=== PATIENT | female | born 1970 | race Caucasian/White ===

== ENCOUNTER → 2017-06-20 10:55 | Outpatient (CLI) | payer OTHER, SELFPAY ==
[2017-06-23 16:13] LABS: Vitamin D 1,25-Dihydroxy 40.4 pg/mL (19.9-79.3)
== END ==
PROVIDERS: Family Provider Preventive Medicine Occupational Medicine; PCP Preventive Medicine Occupational Medicine; Visit Provider Nurse Practitioner Women's Health
DX: R53.83 Other fatigue (principal)
CPT/HCPCS: 36415; 82652

== ENCOUNTER → 2017-06-29 10:49 | Outpatient (CLI) | payer OTHER, SELFPAY ==
--- NOTE | 2017-06-29 10:53 | HPBI_ITS ---
MAMMOGRAPHY - BILATERAL SCREENING REASON FOR EXAM: Female, 46 years old. Routine annual screening examination. PERTINENT HISTORY: Aunt with breast cancer. TECHNIQUE: Digital bilateral breast hilton (3D mammographic acquisition) in the CC and MLO projections. 2-D mediolateral oblique (MLO) and craniocaudad (CC) views of both breasts were obtained. CAD: Full Field Digital Mammography with Computer Added Detection was performed. COMPARISON: Comparison is made with prior examination dated November 30, 2014 and April 28, 2013. FINDINGS: Breast Composition: The breasts are heterogeneously dense, which may obscure small masses. There are no dominant masses or suspicious calcifications. No other significant abnormalities are identified. There has been no significant change since the prior study. HPBI/SCREENING MAMM (CAD), BILAT IMPRESSION: Stable bilateral screening mammogram. Yearly follow-up mammogram recommended. (A) ASSESSMENT CATEGORY: BIRADS Category 1: Negative. A letter regarding these results will be sent to the patient by the facility within 30 days. Approximately 10% of breast cancers are not detected by mammography. A normal mammogram should not delay biopsy of a clinically suspicious abnormality. [id number] Electronically Signed: Gilberto Prasad MD at 13:09 EST Tel [phone], Service support ,
== END ==
PROVIDERS: Family Provider Preventive Medicine Occupational Medicine; PCP Preventive Medicine Occupational Medicine; Visit Provider Obstetrics & Gynecology Gynecology
DX: Z12.31 Encounter for screening mammogram for malignant neoplasm of breast (principal); Z80.3 Family history of malignant neoplasm of breast
CPT/HCPCS: 77063; 77067

== ENCOUNTER → 2017-09-28 15:38 | Outpatient (CLI) | payer OTHER, SELFPAY | PROVIDERS: Family Provider Preventive Medicine Occupational Medicine; PCP Preventive Medicine Occupational Medicine; Visit Provider Otolaryngology Otolaryngology/Facial Plastic Surgery | DX: J32.9 Chronic sinusitis, unspecified (principal) | CPT/HCPCS: 87070; 87077; 87186; 87205 ==

== ENCOUNTER 2017-10-10 16:20 | Emergency (ER) | payer OTHER, SELFPAY ==
--- NOTE | 2017-10-10 16:20 | DT_ITS ---
This patient was seen during an EMR downtime October 08, 2017 - October 15, 2017. This patient may have a combination of paper and electronic documentation or all paper documentation. All documentation is viewable within the e-chart portion of [employer] for each patient visit.
== END 2017-10-10 17:30 | disposition home or self-care (01) ==
LOC: ED 10-12 11:19
PROVIDERS: Emergency Provider Emergency Medicine; Family Provider Preventive Medicine Occupational Medicine; PCP Preventive Medicine Occupational Medicine
DX: L27.1 Localized skin eruption due to drugs and medicaments taken internally (principal); R11.0 Nausea; R50.9 Fever, unspecified; T37.0X5A Adverse effect of sulfonamides, initial encounter; Y92.9 Unspecified place or not applicable
CPT/HCPCS: 99283

== ENCOUNTER → 2018-11-04 12:49 | Outpatient (CLI) | payer OTHER, SELFPAY ==
--- NOTE | 2018-11-04 12:52 | BI_ITS ---
MAMMOGRAPHY - BILATERAL SCREENING REASON FOR EXAM: Female, 48 years old. Routine annual screening examination. PERTINENT HISTORY: Aunts with breast cancer. TECHNIQUE: Digital bilateral breast janny (3D mammographic acquisition) in the CC and MLO projections. 2-D mediolateral oblique (MLO) and craniocaudad (CC) views of both breasts were obtained. CAD: Full Field Digital Mammography with Computer Added Detection was performed. COMPARISON: Comparison is made with prior study dated June 29, 2017 and November 30, 2014. FINDINGS: Breast Composition: The breasts are heterogeneously dense, which may obscure small masses. There are no dominant masses or suspicious calcifications. No other significant abnormalities are identified. There has been no significant change since the prior study. BI/SCREEN MAMM (CAD) W/JANNY BILAT IMPRESSION: Stable bilateral screening mammogram. Yearly follow-up mammogram recommended. (A) ASSESSMENT CATEGORY: BIRADS Category 1: Negative. A letter regarding these results will be sent to the patient by the facility within 30 days. Approximately 10% of breast cancers are not detected by mammography. A normal mammogram should not delay biopsy of a clinically suspicious abnormality. [id number] Electronically Signed: Gilberto Prasad, at 15:22 EDT , Service support ,
== END ==
PROVIDERS: Family Provider Preventive Medicine Occupational Medicine; PCP Preventive Medicine Occupational Medicine; Referring Provider Obstetrics & Gynecology Gynecology; Visit Provider Obstetrics & Gynecology Gynecology
DX: Z12.31 Encounter for screening mammogram for malignant neoplasm of breast (principal)
CPT/HCPCS: 77063; 77067

== ENCOUNTER 2020-01-25 13:36 | Emergency (ER) | payer OTHER, SELFPAY ==
[2020-01-25 13:38] VITALS: BP 138/93; PULSE 86; RESP 14; TEMP 36.8; O2SAT 98; BMI 23.6
--- NOTE | 2020-01-25 13:50 | EKG12_ITS ---
Test Reason : DIZZINESS Blood Pressure : / mmHG Vent. Rate : 072 BPM Atrial Rate : 072 BPM P-R Int : 164 ms QRS Dur : 090 ms QT Int : 406 ms P-R-T Axes : 051 011 053 degrees QTc Int : 444 ms Normal sinus rhythm Normal ECG Confirmed by DEBORAH DANIEL, URSZULA ([id number]), commercial production editor NITESH BRANDON ([id number]) on 01/27/2020 1:25:06 PM Referred By: [facility] Confirmed By:URSZULA CABRERA MD
--- NOTE | 2020-01-25 13:55 | ED.VIS.GEN ---
History of Present Illness <Carrington Kevin - Last Filed: 01/25/20 14:38> Informant: Patient Narrative: 49-year-old female with no significant past medical history presents with complaints of dizziness. She states this morning whenever she is up and walking after 1 to 2 minutes she will feel lightheaded like she might pass out. Denies vision changes, room spinning, nausea, or vomiting. It improves if she lies down. This is occurred several times. She noted she wasn't drinking enough and drank water and Gatorade at home without improvement. Denies fevers, chills, headache, neck pain, dyspnea, cough, or abdominal pain. <Cecelia Dave - Last Filed: 01/25/20 14:43> Chief Complaint: Dizziness Past Medical History <Carrington Kevin - Last Filed: 01/25/20 14:38> Past Medical History: - - Seasonal allergies Smoking Status: Never smoker <TenzinCecelia - Last Filed: 01/25/20 14:43> - Allergies and Home Meds Allergies/Adverse Reactions: Allergies cephalexin [From Keflex] Allergy (Mild, Verified 01/25/20 13:37) unknown phenobarbital Adverse Reaction (Verified 01/25/20 13:37) Vomiting Primary Care Physician: Chris Piña DO [[facility]] - Review of Systems General: Denies: Chills, Fever, Sweats Eyes: Denies: Visual changes - bilaterally, Diplopia ENT: Denies: Rhinorrhea, Sore throat Cardiovascular: Denies: Chest pain, Palpitations Respiratory: Denies: Dyspnea, Cough, Dyspnea on exertion Gastrointestinal: Denies: Abdominal pain, Nausea, Vomiting, Diarrhea, Melena, Hematochezia Genitourinary: Denies: Dysuria, Hematuria, Frequency Musculoskeletal: Denies: Back pain, Extremity Pain Skin: Denies: Rash, Wounds Neurological: Denies: Headache, Weakness, Parasthesia, Numbness <Cecelia Dave - Last Filed: 01/25/20 14:43> Physical Exam Vital Signs/Narrative: Vital Signs Temp Pulse Pulse Pulse Pulse Resp BP 01/25/20 13:56 88 89 91 01/25/20 13:38 98.3 F 86 14 138/93 H BP BP BP Pulse Ox 01/25/20 13:56 128/92 H 141/77 H 155/87 H 01/25/20 13:38 98 <DoritaCarrington - Last Filed: 01/25/20 14:38> Vital Signs/Narrative: Vital Signs Temp Pulse Resp BP Pulse Ox 01/25/20 13:38 98.3 F 86 14 138/93 H 98 Inital Vital Signs reviewed: Yes General: Well nourished, Well developed, No Acute Distress Head: Normocephalic, Atraumatic Eyes: Perrl, EOMI ENT: Moist mucous membranes, No rhinorrhea Neck: Supple, Nontender Cardiovascular: Regular rate, Regular rhythm, No murmurs Respiratory: No distress, CTA bilaterally, Chest nontender Abdomen: Soft, Nontender, Nondistended, Normal bowel sounds Back: Normal Inspection Extremities: No edema Skin: Normal color, No rash Neurological: Alert, Oriented x3, Cranial nerves II-XII grossly intact, Normal Strength, Normal Sensation Psychological: Normal affect, Normal Mood <Cecelia Dave - Last Filed: 01/25/20 14:43> Diagnostic/Tx/Re-eval - Medical Decision Making The patient presents to the emergency department with lightheadedness. She states is worse with change in position. She is concerned that she may not been drinking enough to keep herself hydrated. Orthostatics were obtained. These were unremarkable. The patient was hydrated. EKG was obtained which was sinus rhythm without acute ischemia. The patient does not describe vertiginous symptoms. She has a benign neurologic examination. Screening labs do demonstrate mild hypokalemia and hyponatremia. She is already ordered a liter of fluids and will be given supplemental potassium. At this point, I do not suspect a dangerous cause of her symptoms. She is well-appearing. She is otherwise been in her normal state of health. I do feel that she is safe for outpatient therapy. Impression 1. Lightheadedness 2. Dehydration <DoritaCarrington - Last Filed: 01/25/20 14:38> Laboratory Data 01/25/20 01/25/20 01/25/20 14:05 14:05 14:05 WBC 4.7 RBC 4.40 Hgb 13.1 Hct 38.7 MCV 88.0 MCH 29.8 MCHC 33.9 RDW Std Deviation 37.2 RDW Coeff of Lavell 11.5 L Plt Count 230 MPV 9.0 Immature Gran % (Auto) 0.400 Neut % (Auto) 70.5 H Lymph % (Auto) 20.6 [place] % (Auto) 7.2 Eos % (Auto) 0.9 Baso % (Auto) 0.4 Absolute Neuts (auto) 3.3 Absolute Lymphs (auto) 0.97 Nucleated RBC % 0 Sodium 130 L Potassium 3.2 L Chloride 96 L Carbon Dioxide 26.0 Anion Gap 8 BUN 8 Creatinine 0.63 Estim Creat Clear Calc 98.27 Est GFR (MDRD) Af Amer 129 Est GFR (MDRD) Non-Af 107 BUN/Creatinine Ratio 12.7 Glucose 114 H Calcium 8.9 Urine Color Yellow Urine Clarity Clear Urine pH 7.0 Ur Specific [place] 1.005 Urine Protein Negative Urine Glucose (UA) Normal Urine Ketones Negative Urine Occult Blood Negative Urine Nitrite Negative Urine Bilirubin Negative Urine Urobilinogen Normal Ur Leukocyte Esterase Negative Urine RBC 0 SEEN Urine WBC 0 SEEN Ur Squamous Epith Cells 0 SEEN Urine Bacteria 0 SEEN Urine Mucus 0 SEEN - Rhythm Strip Rhythm Strip: Sinus Rhythm Rate: 72 Ectopy: None - Medical Decision Making Patient presented with positional lightheadedness. She appears well and nontoxic. Vital signs within normal limits. Orthostatic vitals negative. EKG is NSR with no signs of ischemia. Labs show mild hyponatremia and hypokalemia. She was given IV fluids and oral potassium replacement. She is stable for outpatient therapy and was advised to continue fluids at home. She was discharged in stable condition. <Cecelia Dave - Last Filed: 01/25/20 14:43> ED Disposition <Carrington Kevin - Last Filed: 01/25/20 14:38> <Cecelia Dave - Last Filed: 01/25/20 14:43> - Plan for ED Patient: Disposition: Home or Assisted Living Diagnosis: Hypokalemia, Hyponatremia, Pre-syncope, Dehydration Instructions: ED Hyponatremia, ED Potassium Deficiency Referrals: Chris Piña DO [[facility]] -
[2020-01-25 13:56] VITALS: BP 128/92; BP 141/77; BP 155/87; PULSE 88; PULSE 89; PULSE 91
[2020-01-25] MEDS: 0.9% Normal Saline 1,000 ML 999 ML IV (14:09)
[2020-01-25 14:13] LABS: Bacteria 0 SEEN /hpf (None Seen); Mucous, Urine 0 SEEN /hpf (<or=2+); Red Blood Cells-Urine 0 SEEN /hpf (0-5); Squamous Epithelial Cells - UA 0 SEEN /hpf (5-10); White Blood Cells 0 SEEN /hpf (0-5)
[2020-01-25 14:15] LABS: Absolute Lymphocyte Count 0.97 X10^3/uL (0.83-4.51); Absolute Neutrophil Count 3.3 X10^3/uL (2.0-7.7); Basophil# 0.02 X10^3/uL; Basophil% 0.4 % (0-1); Eosinophil# 0.04 X10^3/uL; Eosinophils% 0.9 % (0-5); Hematocrit 38.7 % (37-47); Hemoglobin 13.1 g/dL (12.0-15.0); Lymphocyte # 0.97 X10^3/ul (4.0); Lymphocyte % 20.6 % (19-41); Mean Corp Hgb Conc 33.9 g/dL (32-36); Mean Corpuscular Hgb 29.8 pg (27.0-32.0); Monocyte# 0.34 X10^3/uL; Monocyte% 7.2 % (0-10); NRBC Flagged by Analyzer 0 % (0-5); Neutrophil # 3.31 X10^3/uL (2.7-7.7); Neutrophil % 70.5 % (47-70); Platelet Count 230 K/mm3 (150-450); RBC Distribution Width CV 11.5 % (11.6-14.6); RBC Distribution Width SD 37.2 fl (35.1-43.9); White Blood Count 4.7 K/mm3 (4.4-11.0)
[2020-01-25 14:23] LABS: Color, Urine Yellow (Yellow); Glucose, Dipstick Normal (Normal); Ketone-Dipstick Negative (Negative); Leukocyte Esterase-Dipstick Negative /ul (Negative); Nitrite-Dipstick Negative (Negative); Occult Blood-Urine Negative /ul (Negative); Protein-Dipstick Negative (Negative); Specific Gravity, Urine 1.005 (1.002-1.030); Urine Bilirubin Dipstick Negative (Negative); Urine Clarity Clear (Clear); Urine Urobilinogen Normal (Normal)
[2020-01-25 14:32] LABS: Anion Gap 8 (5-15); BUN 8 mg/dL (7-18); BUN/Creat Ratio 12.7 RATIO (10-20); Calcium,Total 8.9 mg/dL (8.5-10.1); Chloride 96 mmol/L (98-107); Creatinine, Serum 0.63 mg/dL (0.55-1.02); EST Glomerular Filtration Rate 107 mL/min (>60); Est Glom Filt Rate - Afr Amer 129 mL/min (>60); Estimated Creatinine Clearance 98.27 ml/min; Glucose 114 mg/dL (74-106); Potassium 3.2 mmol/L (3.5-5.1); Sodium Level 130 mmol/L (136-145)
[2020-01-25 14:45] VITALS: PULSE 80; RESP 18; O2SAT 100
== END 2020-01-25 14:57 | disposition home or self-care (01) ==
PROVIDERS: Emergency Provider Physician Assistant; PCP Family Medicine
DX: E86.0 Dehydration (principal); E87.6 Hypokalemia; E87.1 Hypo-osmolality and hyponatremia; Z79.899 Other long term (current) drug therapy
CPT/HCPCS: 80048; 81001; 85025; 93005; 96360; 99284; J7030; A4216

== ENCOUNTER → 2020-02-03 11:10 | Outpatient (CLI) | payer OTHER, SELFPAY ==
[2020-01-25 13:38] VITALS: BMI 23.6
[2020-02-03 16:00] LABS: Anion Gap 3 (5-15); BUN 10 mg/dL (7-18); BUN/Creat Ratio 14.2 RATIO (10-20); Chloride 103 mmol/L (98-107); EST Glomerular Filtration Rate 94 mL/min (>60); Est Glom Filt Rate - Afr Amer 114 mL/min (>60); Glucose 90 mg/dL (74-106); Potassium 4.1 mmol/L (3.5-5.1); Sodium Level 137 mmol/L (136-145)
== END ==
PROVIDERS: PCP Family Medicine; Visit Provider Family Medicine
DX: E87.6 Hypokalemia (principal)
CPT/HCPCS: 36415; 80048

== ENCOUNTER 2020-03-02 15:55 | Emergency (ER) | payer OTHER, SELFPAY ==
[2020-03-02 15:56] VITALS: BP 133/85; PULSE 76; RESP 15; TEMP 36.1; O2SAT 100; BMI 25.1
--- NOTE | 2020-03-02 16:45 | ED.VIS.GEN ---
History of Present Illness Chief Complaint: Cold Sx Informant: Patient Onset: Weeks Context: Gradual Onset Timing: Continuous Current Severity: Moderate Maximum Severity: Moderate Narrative: The patient is a 49-year-old female that presents to the emergency department who presents to the emergency department with congestion and ear pain. The patient states her symptoms began about 3 weeks ago. She states she was seeing her content architect who started her on a new nasal spray. She states that seems like it is made her symptoms worse. She has significant congestion. She states when she moves her head, she does get mild vertiginous symptoms. She has not had fevers. She denies cough. She does describe rather significant facial pressure but denies any hannah headache. She states she is otherwise been in her normal state of health. Prior similar symptoms: No Recent Illness/Hospitalization: No Past Medical History - Allergies and Home Meds Allergies/Adverse Reactions: Allergies cephalexin [From Keflex] Allergy (Mild, Verified 03/02/20 15:56) unknown sulfamethoxazole [From Bactrim] Allergy (Verified 03/02/20 15:56) Hives trimethoprim [From Bactrim] Allergy (Verified 03/02/20 15:56) Hives phenobarbital Adverse Reaction (Verified 03/02/20 15:56) Vomiting Primary Care Physician: Linda Lazo MD [Primary Care Provider] - Prior records reviewed: Yes Past Medical History: - - Seasonal allergies Surgical History: noncontributory Smoking Status: Never smoker Review of Systems General: Denies: Chills, Fever, Sweats Eyes: Denies: Visual changes - bilaterally, Diplopia ENT: Reports: Bilateral ear pain. Denies: Rhinorrhea, Sore throat Cardiovascular: Denies: Chest pain, Palpitations Respiratory: Denies: Dyspnea, Cough, Dyspnea on exertion Gastrointestinal: Denies: Abdominal pain, Nausea, Vomiting, Diarrhea, Melena, Hematochezia Genitourinary: Denies: Dysuria, Hematuria, Frequency Musculoskeletal: Denies: Back pain, Extremity Pain Skin: Denies: Rash, Wounds Neurological: Denies: Headache, Weakness, Numbness Physical Exam Vital Signs/Narrative: Vital Signs Temp Pulse Resp BP Pulse Ox 03/02/20 15:56 96.9 F L 76 15 133/85 H 100 Inital Vital Signs reviewed: Yes General: Well nourished, Well developed, No Acute Distress Head: Normocephalic, Atraumatic Eyes: Perrl, EOMI ENT: Moist mucous membranes, No rhinorrhea, Nasal congestion, Sinus tenderness Neck: Supple, Nontender Cardiovascular: Regular rate, Regular rhythm, No murmurs Respiratory: No distress, CTA bilaterally, Chest nontender Abdomen: Soft, Nontender, Nondistended, Normal bowel sounds Back: Nontender, Normal Inspection Extremities: Nontender, No edema Skin: Normal color, No rash Neurological: Alert, Oriented x3, Cranial nerves II-XII grossly intact, Normal Strength, Normal Sensation Psychological: Normal affect, Normal Mood Diagnostic/Tx/Re-eval - Medical Decision Making The patient symptoms do seem most concerning for sinusitis. She has facial fullness. There is fluid behind both ears without distortion of the landmarks. She is had symptoms for 3 weeks. I do feel the most prudent plan of care would be to treat her at this time. I do not suspect Covid. The patient was counseled on concerning symptoms and reasons to return. She will be placed on prednisone and Augmentin. She will be discharged home. Impression 1. Sinusitis ED Disposition - Plan for ED Patient: Instructions: ED Sinusitis Antibiotic Treatment Prescriptions: Amox/Clavulanate Tablet [Augmentin Tablet] 875 mg PO Q12H #20 tab Prescription Printed Prednisone [Deltasone] 40 mg PO DAILY #10 tab Prescription Printed Referrals: Linda Lazo MD [Primary Care Provider] -
== END 2020-03-02 17:03 | disposition home or self-care (01) ==
LOC: ED 16:56
PROVIDERS: Emergency Provider Emergency Medicine; PCP Family Medicine
DX: J32.9 Chronic sinusitis, unspecified (principal); Z79.899 Other long term (current) drug therapy
CPT/HCPCS: 99281

== ENCOUNTER 2020-06-25 05:58 | Day surgery (SDC) | payer OTHER, SELFPAY ==
[2020-04-21 09:03] VITALS: BMI 24.7
[2020-06-25] VITALS (9 sets, daily range): BP systolic 102–124; BP diastolic 69–81; PULSE 57–83; RESP 12–16; TEMP 36.2–37.3; O2SAT 95–100; BMI 24.0
[2020-06-25] MEDS: Lactated Ringers 1,000 ML 100 ML IV ×2 (07:04→08:30)
[2020-06-25 07:09] LABS: Anion Gap 6 (5-15); BUN 12 mg/dL (7-18); BUN/Creat Ratio 16.8 RATIO (10-20); Calcium,Total 9.4 mg/dL (8.5-10.1); Chloride 108 mmol/L (98-107); Creatinine, Serum 0.72 mg/dL (0.55-1.02); EST Glomerular Filtration Rate 92 mL/min (>60); Est Glom Filt Rate - Afr Amer 112 mL/min (>60); Estimated Creatinine Clearance 82.51 ml/min; Glucose 98 mg/dL (74-106); Potassium 3.8 mmol/L (3.5-5.1); Sodium Level 142 mmol/L (136-145)
--- NOTE | 2020-06-25 07:30 | NASAL_PTH ---
PATIENT: MILO CONSTANTINO LOC: [facility] – [place], [place] U#:[id number] AGE/SX: 49/F ROOM: RE06/25/[address]: Dr. Jimmy Mckeon MD : 1970 BED: DIS: 06/25/2020 SPEC #: [id number] RECD: 06/25/20 10:55 STATUS: CASSY REQ #: [id number] MICHELLE: 06/25/20 07:[address]: Jimmy Mckeon DEPT: SURGICAL PATHOLOGY RECD BY: Lisa Ridley ENTERED: 06/25/20 12:35 SP TYPE: NASAL SPEC OTHR DR: Dr. Linda Lazo MD Tissues: A - Nasal cartilage, NOS B - Nasal turbinate, NOS Procedures: Decalcification bone/plaque Surgery Specimen Level III HEADER OPERATION: Septoplasty, submucous resection inferior turbinates PRE-OP DIAGNOSIS: Nasal septal deviation, hypertrophy of turbinates TISSUE SUBMITTED: A - Nasal cartilage, B - Turbinate tissue MICROSCOPIC DIAGNOSIS A. Nasal cartilage, septoplasty: Fragments of hyaline cartilage and bone with focal reparative and reactive change (clinically deviated septum). B. Turbinate tissue, biopsy: Respiratory mucosa and submucosa with mild chronic inflammation. Minute fragments of bone with no pathologic change AM:derrek 06/30/2020 MICROSCOPIC DESCRIPTION Slides are reviewed. GROSS DESCRIPTION A - Received in fixative is one container labeled with the patient's name and designated nasal cartilage. The specimen consists of multiple irregular fragments of pink-mahoney cartilage and bone that in aggregate measure 5 x 3 x 0.2 cm. The specimen is totally submitted in two cassettes after decalcification. B - Received in fixative is one container labeled with the patient's name and designated turbinate tissue. The specimen consists of multiple irregular fragments of light pink-mahoney soft tissue that in aggregate measure 1.5 x 1 x 0.1 cm. The specimen is totally submitted in one cassette. / AM:derrek 06/25/20 TC:3 CPT: 56582 x2, [id number]
[2020-06-25] MEDS: Oxymetazoline 0.05% 1 SPRAY SPRAY.BTL 15 SPRAY (08:04)
[2020-06-25] MEDS: Bacitracin 500 UNITS/GM PACKET (08:05)
[2020-06-25] MEDS: Lidocaine 1% /Epi 1:100 (20ml) 20 ML Vial (08:05)
[2020-06-25] MEDS: Lidocaine 4% 50 ML Bottle (08:05)
--- NOTE | 2020-06-25 08:22 | PCM.OPRPT ---
Problem List (1) Deviated nasal septum Status: Chronic (2) Hypertrophy of nasal turbinates Status: Chronic Report of Operation Date of Procedure: 06/25/20 Pre-Operative Diagnosis: Deviated nasal septum, hypertrophy of inferior nasal turbinates Post-Operative Diagnosis: Same Surgery/Procedure Performed:: Septoplasty, submucous resection of inferior nasal turbinates Description of Surgical Findings:: Eunice is a 49-year-old female with complaints of chronic nasal obstruction failing appropriate medical therapy. Examination showed marked posterior right septal deviation as well as persistent hypertrophy of the inferior nasal turbinates and the above procedure was offered in hopes of alleviation of these complaints. The risks of coronavirus exposure in this period were also discussed and she is agreeable accept these risk in exchange for treatment of her underlying complaints. The risks, alternatives, potential complications, and benefits were discussed at length and any questions answered to the patient and/or caregiver's satisfaction. Witnessed informed consent was obtained in the office, and the patient and/or caregiver was agreeable to proceed. Procedure went as follows: The patient was identified in the preoperative holding and brought to the operating room, was placed under general anesthesia and intubated. When appropriate anesthesia was obtained, pledgets soaked in a 50-50 mixture of oxymetazoline and 4% topical lidocaine were placed to decongest the nasal mucosa. The nasal septum was then injected beginning on the left side with 1% lidocaine with 100,000 epinephrine for a total of 6 mL. The pledgets were then removed and the left nasal cavity examined. There was noted to be significant nasal septal deviation to the right with a large posterior bony spur. Using a 15 blade scalpel, a hemitransfixion incision was then made on the left side and using the [place] elevator a subperichondrial/periosteal flap was elevated. The septum was then transected at the bony cartilaginous junction and a similar flap raised on the contralateral side. Using a Shahid forceps, the septum was then sharply transected superiorly and the deviated portions removed with a Mayelin forceps. Any inferior bony spur was then removed with a chisel allowing for midline placement of the nasal septum. The hemitransfixion incision was then closed with interrupted 4-0 chromic gut suture followed by a 4-0 plain quilting suture to reapproximate the mucosal flaps. Attention was then turned to the inferior nasal turbinates. Beginning on the left side, the anterior aspect of the inferior turbinate was then injected with 1% lidocaine with 100,000 epinephrine for a total of 2.5 mL bilaterally. Again beginning on the left side a 15 blade scalpel was used to create a stab incision in the anterior aspect of the turbinate. A caudal elevator was then used to elevate a submucosal plane. Using the microdebrider, the anterior bony and intervening submucosal tissue was then removed resulting in reduction of the inferior turbinate. Similar procedure was then completed on the contralateral side. Dillard splints were then applied after coating with bacitracin ointment and secured to the columella with a single 3-0 Prolene suture. The patient was then returned to anesthesia, was revived and extubated having tolerated the procedure well without complications. Type of Anesthesia:: General Anesthesiologist: Robert Tolbert Special Medications: none Specimen's removed: nasal septal and turbinate contents Drains: none Estimated Blood Loss (mL): 25 mL Fluids Replaced: 1100 mL Grafts/Implants Used: Dillard splints - Complications none - Admit VTE Documentation VTE Present on Admission: No VTE Mechan Device Prophylaxis: SCD's VTE Pharm Prophylaxis ordered?: No
--- NOTE | 2020-06-25 08:28 | PCM.DC ---
- Discharge Diagnoses Current Active Problems: Current Active and Chronic Problems (Last Reviewed 04/21/20 @ 09:05 by Keena Song) Deviated nasal septum (Chronic) Hypertrophy of nasal turbinates (Chronic) You will use the following diet at home:: Regular Discharge Activity: Return to Normal Activity, May not drive while taking narcotic pain medications. Call your doctor if your incision/area has: Sudden Increased Bleeding Call your doctor if you observe: Fever of 101 or Higher, Uncontrolled pain Allergies/Adverse Reactions: Allergies cephalexin [From Keflex] Allergy (Mild, Verified 06/25/20 06:37) unknown sulfamethoxazole [From Bactrim] Allergy (Verified 06/25/20 06:37) Hives trimethoprim [From Bactrim] Allergy (Verified 06/25/20 06:37) Hives phenobarbital Adverse Reaction (Verified 06/25/20 06:37) Vomiting Medications to take at Discharge Azelastine HCl [Astelin] 1 spray NASAL BID 06/21/20 Fluticasone 0.05% [Flonase Nasal [place]] 1 spray NASAL DAILY 06/21/20 Primary Care Physician: Linda Lazo MD [Primary Care Provider] - Test Results: Test results from this visit will be discussed in further detail at your follow-up appointment, if applicable. Please Follow Up With: Jimmy Mckeon MD When: 5 days
== END 2020-06-25 11:09 | disposition home or self-care (01) ==
LOC: SDC 05:59 → AC 05:59
PROVIDERS: PCP Family Medicine; Referring Provider Otolaryngology; Visit Provider Otolaryngology
PROC: (CPT 30520; principal; 2020-06-25 07:15)
DX: J34.2 Deviated nasal septum (principal); J34.3 Hypertrophy of nasal turbinates; Z20.822 Contact with and (suspected) exposure to COVID-19; F41.9 Anxiety disorder, unspecified; Z79.899 Other long term (current) drug therapy; Z78.0 Asymptomatic menopausal state
CPT/HCPCS: 30140; 30520; 80048; 87426; 88304; 88311; C9803; J7120; J0330; J2405

== ENCOUNTER 2020-07-30 15:28 | Outpatient (RCR) | payer OTHER, SELFPAY ==
[2020-06-25 06:40] VITALS: BMI 24.0
== END 2020-10-12 23:59 ==
LOC: IMMUN 15:28
PROVIDERS: PCP Family Medicine; Visit Provider Family Medicine
DX: Z23 Encounter for immunization (principal)
CPT/HCPCS: 0001A; 0002A; 91300

== ENCOUNTER → 2020-10-21 11:04 | Outpatient (CLI) | payer OTHER, SELFPAY ==
[2020-06-25 06:40] VITALS: BMI 24.0
--- NOTE | 2020-10-21 11:06 | BI_ITS ---
MAMMOGRAPHY - BILATERAL SCREENING REASON FOR EXAM: Female, 50 years old. Routine annual screening examination. PERTINENT HISTORY: Aunts with breast cancer. TECHNIQUE: Digital bilateral breast janny (3D mammographic acquisition) in the CC and MLO projections. 2-D mediolateral oblique (MLO) and craniocaudad (CC) views of both breasts were obtained. CAD: Full Field Digital Mammography with Computer Added Detection was performed. COMPARISON: Comparison is made with prior study dated 11/04/2018 and 06/29/2017. FINDINGS: Breast Composition: The breasts are heterogeneously dense, which may obscure small masses. There are no dominant masses or suspicious calcifications. No other significant abnormalities are identified. There has been no significant change since the prior study. BI/SCRN MAMM (CAD)W/JANNY BILAT IMPRESSION: Stable bilateral screening mammogram. Yearly follow-up mammogram recommended. (A) ASSESSMENT CATEGORY: BIRADS Category 1: Negative. A letter regarding these results will be sent to the patient by the facility within 30 days. Approximately 10% of breast cancers are not detected by mammography. A normal mammogram should not delay biopsy of a clinically suspicious abnormality. [id number] Electronically Signed: Gilberto Prasad MD at 11:56 EDT , Service support ,
== END ==
PROVIDERS: PCP Family Medicine; Referring Provider Obstetrics & Gynecology Gynecology; Visit Provider Obstetrics & Gynecology Gynecology
DX: Z12.31 Encounter for screening mammogram for malignant neoplasm of breast (principal)
CPT/HCPCS: 77063; 77067

== ENCOUNTER → 2022-01-17 | Outpatient (CLI) | payer OTHER, SELFPAY ==
--- NOTE | 2022-01-17 10:14 | BI_ITS ---
MAMMOGRAPHY - BILATERAL SCREENING REASON FOR EXAM: Female, 51 years old. Routine annual screening examination. PERTINENT HISTORY: Aunts with breast cancer. TECHNIQUE: Digital bilateral breast janny (3D mammographic acquisition) in the CC and MLO projections. 2-D mediolateral oblique (MLO) and craniocaudad (CC) views of both breasts were obtained. CAD: Full Field Digital Mammography with Computer Added Detection was performed. COMPARISON: Comparison is made with prior study dated 10/21/2020 and 11/04/2018. FINDINGS: Breast Composition: The breasts are heterogeneously dense, which may obscure small masses. There are no dominant masses or suspicious calcifications. No other significant abnormalities are identified. There has been no significant change since the prior study. BI/SCRN MAMM (CAD)W/JANNY BILAT IMPRESSION: Stable bilateral screening mammogram. Yearly follow-up mammogram recommended. (A) ASSESSMENT CATEGORY: BIRADS Category 1: Negative. A letter regarding these results will be sent to the patient by the facility within 30 days. Approximately 10% of breast cancers are not detected by mammography. A normal mammogram should not delay biopsy of a clinically suspicious abnormality. [id number] Electronically Signed: Gilberto Prasad MD at 13:44 EDT ,
== END | disposition home or self-care (01) ==
LOC: OPBI 10:13
PROVIDERS: PCP Family Medicine; Referring Provider Obstetrics & Gynecology Gynecology; Visit Provider Obstetrics & Gynecology Gynecology
DX: Z12.31 Encounter for screening mammogram for malignant neoplasm of breast (principal)
CPT/HCPCS: 77063; 77067

== ENCOUNTER 2022-04-03 08:03 | Emergency (ER) | payer OTHER, SELFPAY ==
[2022-04-03 08:04] VITALS: BP 122/87; PULSE 90; RESP 16; TEMP 36; O2SAT 100
--- NOTE | 2022-04-03 08:17 | EX.ED.DYSGE1 ---
HPI History of Present Illness Chief Complaint: Allergic Reaction Informant: patient Narrative Narrative: Patient states she saw neurologist this past week and was placed on Trileptal for nonspecific facial nerve pain. After taking the first dose she developed nausea. She took a total of 3 more dosages. Her last dose was yesterday morning. She still has some nausea. She vomited once this morning. She does have some headache. But she is also been having headache and facial pains. She denies coughing or fevers or chills. She did contact the physician on my chart but has not gotten a response yet. She had meclizine at home that she tried but this did not help the nausea much. She has not had vertigo or spinning. She is not on any diuretics. [facility] Medical History TMJ Home Medications azelastine 137 mcg (0.1 %) nasal spray aerosol 1 spray NASAL BID 06/21/20 [History Last Taken Unknown] fluticasone propionate 50 mcg/actuation nasal spray,suspension 1 spray NASAL DAILY 06/21/20 [History Last Taken Unknown] acetaminophen 500 mg tablet 500 mg PO Q4H PRN PRN Pain Score 1-5/10 06/25/20 [Rx Last Taken Unknown] ibuprofen 200 mg tablet 400 mg PO Q6H PRN PRN Pain Score 4-10/10 06/25/20 [Rx Last Taken Unknown] ondansetron 4 mg disintegrating tablet 4 mg PO Q8H PRN nausea and vomiting #10 tabs 04/03/22 [Rx Last Taken Unknown] Allergy/AdvReac Type Severity Reaction Status Date / Time cephalexin [From Keflex] Allergy Mild unknown Verified 04/03/22 08:06 sulfamethoxazole Allergy Hives Verified 04/03/22 08:06 [From Bactrim] trimethoprim [From Bactrim] Allergy Hives Verified 04/03/22 08:06 phenobarbital AdvReac Vomiting Verified 04/03/22 08:06 Family History Father Myocardial infarction Mother Hypertension Surgical History Hx of eye surgery Social History Smoking Status: Never smoker alcohol intake: never substance use type: does not use caffeine: Yes what type of physical activity do you participate in: none seatbelt use: always do you feel safe at home: Yes additional social history: [employer]al [employer] ROS ROS ED Constitutional Constitutional ED: Denies chills, fever(s) or subjective Eyes Eyes: Denies change in vision ENT ENT ED: Reports other Details: Facial pain which is been an ongoing issue ; Denies ear pain, rhinorrhea or sore throat Cardiovascular Cardiovascular: Denies chest pain or palpitations Respiratory/Chest Respiratory/Chest: Denies cough or dyspnea Gastrointestinal Gastrointestinal: Reports nausea and vomiting; Denies abdominal pain, constipation, diarrhea or melena Genitourinary Genitourinary ED: Denies dysuria Musculoskeletal Musculoskeletal: Denies back pain Integumentary Denies rash Neurologic Neurologic: Reports headache(s); Denies paresthesias or weakness Endocrine Endocrinology: Denies polydipsia or polyuria Hematologic/Lymphatic Hematologic/Lymphatic: Denies anemia Allergic/Immunologic Allergic/Immunologic ED: Denies urticaria EXAM Physical Exam Const Vital Signs: 04/03/22 08:04 Temperature 96.8 F L Temperature Source Temporal Pulse Rate 90 Respiratory Rate 16 Blood Pressure 122/87 H Blood Pressure Mean 98 Pulse Ox 100 Oxygen Delivery Method Room Air Positive well nourished and well developed General Appearance ED: well developed and NAD; Negative for cyanotic or diaphoretic HEENT Reports moist mucous membranes Eyes General Eye ED: Negative for scleral icterus Neck no lymphadenopathy Resp normal respiratory effort and clear to auscultation bilaterally Cardio regular rate and regular rhythm GI normal to inspection, nondistended, normoactive bowel sounds, non-tender, non-distended and no masses Auscultation: normoactive bowel sounds Back/Spine no CVA tenderness Extremity normal to inspection Neuro Sensorium / Orientation: alert; Negative for orientation impaired, lethargic or stuporous Skin no rashes or lesions noted MDM MDM MDM Narrative Medical decision making narrative: Patient's influenza a and B are negative. Patient was rechecked. The nausea is gone and she is feeling much better. She is comfortable going home. She will contact her neurologist about medication changes. I will write for a few Zofran in case she has any further issues. If she develops new symptoms, fever cough or other concerns she may need to return. I doubt her symptoms are due to hyponatremia after 4 doses of Trileptal. This would self-correct with stopping the medication which we are doing. Discharge Plan Triage Chief Complaint: Allergic Reaction ED Provider: Ramiro Perez Dx/Rx/DC Orders Clinical Impression: Medication adverse effect, Nausea & vomiting Instructions: DRUG REACTION, GI Intolerance, ED Vomiting (Adult) Prescriptions: New ondansetron 4 mg tablet,disintegrating 4 mg PO Q8H PRN (Reason: nausea and vomiting) Qty: 10 0RF No Action azelastine 1 SPRAY aerosol,spray 1 spray NASAL BID fluticasone propionate 1 SPRAY spray,suspension 1 spray NASAL DAILY acetaminophen 500 MG tablet 500 mg PO Q4H PRN PRN (Reason: Pain Score 1-5/10) 0RF ibuprofen 200 MG tablet 400 mg PO Q6H PRN PRN (Reason: Pain Score 4-10/10) 0RF Primary Care Provider: Linda Lazo Referrals: Linda Lazo MD [Primary Care Provider] - 1-2 Days if not improving Activity Restrictions/Additional Instructions: Follow-up with your neurologist about medication changes. Disposition Disposition: Home, Self Care
[2022-04-03] MEDS: Ondansetron ODT 4 MG Tablet PO (08:21)
[2022-04-03 09:23] VITALS: BP 122/64; PULSE 71; RESP 15; O2SAT 99
== END 2022-04-03 09:24 | disposition home or self-care (01) ==
PROVIDERS: Emergency Provider Emergency Medicine; PCP Family Medicine; Visit Provider Emergency Medicine
DX: T78.40XA Allergy, unspecified, initial encounter (principal); R11.2 Nausea with vomiting, unspecified; T50.905A Adverse effect of unspecified drugs, medicaments and biological substances, initial encounter; R51.9 Headache, unspecified
CPT/HCPCS: 87804; 99283

== ENCOUNTER → 2023-02-15 | Outpatient (CLI) | payer OTHER, SELFPAY ==
--- NOTE | 2023-02-15 09:14 | BI_ITS ---
MAMMOGRAPHY - BILATERAL SCREENING REASON FOR EXAM: Female, 52 years old. Routine annual screening examination. PERTINENT HISTORY: Aunt with breast cancer. TECHNIQUE: Digital bilateral breast janny (3D mammographic acquisition) in the CC and MLO projections. 2-D mediolateral oblique (MLO) and craniocaudad (CC) views of both breasts were obtained. CAD: Full Field Digital Mammography with Computer Added Detection was performed. COMPARISON: Comparison is made with prior study dated January 17, 2022 and October 21, 2020. FINDINGS: Breast Composition: The breasts are heterogeneously dense, which may obscure small masses. There are no dominant masses or suspicious calcifications. No other significant abnormalities are identified. There has been no significant change since the prior study. BI/SCRN MAMM (CAD)W/JANNY BILAT IMPRESSION: Stable bilateral screening mammogram. Yearly follow-up mammogram recommended. (A) ASSESSMENT CATEGORY: BIRADS Category 1: Negative. A letter regarding these results will be sent to the patient by the facility within 30 days. Approximately 10% of breast cancers are not detected by mammography. A normal mammogram should not delay biopsy of a clinically suspicious abnormality. [id number] Electronically Signed: Gilberto Prasad MD at 13:26 EDT ,
== END | disposition home or self-care (01) ==
PROVIDERS: PCP Family Medicine; Referring Provider Obstetrics & Gynecology Gynecology; Visit Provider Obstetrics & Gynecology Gynecology
DX: Z12.31 Encounter for screening mammogram for malignant neoplasm of breast (principal)
CPT/HCPCS: 77063; 77067

== ENCOUNTER → 2023-10-10 | Outpatient (CLI) | payer OTHER, SELFPAY ==
[2023-10-10 06:50] LABS: Absolute Lymphocyte Count 1.77 X10^3/uL (0.83-4.51); Absolute Neutrophil Count 2.5 X10^3/uL (2.0-7.7); Basophil# 0.03 X10^3/uL; Basophil% 0.6 % (0-1); Eosinophil# 0.15 X10^3/uL; Eosinophils% 3.1 % (0-5); Hematocrit 41.5 % (37-47); Hemoglobin 13.5 g/dL (12.0-15.0); Lymphocyte # 1.77 X10^3/ul (0.83-4.51); Lymphocyte % 36.7 % (19-41); Mean Corp Hgb Conc 32.5 g/dL (32-36); Mean Corpuscular Hgb 29.2 pg (27.0-32.0); Mean Corpuscular Volume 89.8 fL (81-99); Mean Platelet Vol. 9.3 fl (6.2-12.0); Monocyte# 0.36 X10^3/uL; Monocyte% 7.5 % (0-10); NRBC Flagged by Analyzer 0 % (0-5); Neutrophil # 2.49 X10^3/uL (2.7-7.7); Neutrophil % 51.7 % (47-70); Platelet Count 273 K/mm3 (150-450); RBC Distribution Width CV 12.1 % (11.6-14.6); RBC Distribution Width SD 39.8 fl (35.1-43.9); Red Blood Count 4.62 M/mm3 (4.2-5.4); White Blood Count 4.8 K/mm3 (4.4-11.0)
[2023-10-10 09:29] LABS: ALB/GLOB Ratio 1.1 RATIO (0.9-2.4); AST(SGOT) 25 U/L (15-37); Alanine Aminotransfer ALT/SGPT 31 U/L (13-56); Alkaline Phosphatase 76 U/L (45-117); Anion Gap 5 (5-15); BUN 12 mg/dL (7-18); BUN/Creat Ratio 15.2 RATIO (10-20); Chloride 106 mmol/L (98-107); Cholesterol 262 mg/dL (200); Creatinine, Serum 0.79 mg/dL (0.55-1.02); EST Glomerular Filtration Rate 82 mL/min (>60); Est Glom Filt Rate - Afr Amer 99 mL/min (>60); Globulin 3.5 g/dL (2.2-4.2); Glucose 107 mg/dL (74-106); High Density Lipoprotein 59 mg/dL; Protein, Total 7.5 g/dL (6.4-8.2); Sodium Level 138 mmol/L (136-145); Thyroid Stim Hormone (TSH) 3.64 uIU/mL (0.358-3.74); Triglycerides 98 mg/dL; Very Low Density Lipoprotein 20 mg/dL (5-40)
== END | disposition home or self-care (01) ==
PROVIDERS: PCP Family Medicine; Referring Provider Family Medicine; Visit Provider Family Medicine
DX: Z00.00 Encounter for general adult medical examination without abnormal findings (principal); Z78.0 Asymptomatic menopausal state; R63.5 Abnormal weight gain
CPT/HCPCS: 36415; 80053; 80061; 84443; 85025

== ENCOUNTER 2024-05-09 08:58 | Day surgery (SDC) | payer OTHER, SELFPAY ==
[2024-05-09] VITALS (7 sets, daily range): BP systolic 92–130; BP diastolic 71–84; PULSE 76–96; RESP 16; TEMP 36.1–37.1; O2SAT 97–100; BMI 26.2
--- NOTE | 2024-05-09 09:56 | PRE.ANES_ITS ---
ASA Classification* ASA Classification ASA Classification: 2 Assessment & Plan Anesthesia* Anesthesia Assessment Anesthesia Assessment: Discussed sedation and/or anesthesia options, risks, benefits, and alternatives with patient/parents/legal guardian/POA. Questions invited. The patient/parents/legal guardian/POA seems to understand and agrees to proceed with anesthesia plan. Reviewed the physical assessment, medical history, allergy history and patient home medications list prior to surgery/procedure/anesthetic and documented any changes. Performed airway and anesthesia risk assessments. Anesthesia Type Anesthesia Type: MAC Anesthesia Focused Assessment* Temperature: 98.8 F Pulse Rate: 76 Blood Pressure: 130/84 Respiratory Rate: 16 Pulse Ox: 100 Airway Assessment Mouth opens: >3 cm Mallampati Score: II Focused Labs Anesthesia Preop lab: CBC WBC 4.8 K/mm3 (4.4-11.0) 10/10/23 06:22 RBC 4.62 M/mm3 (4.2-5.4) 10/10/23 06:22 Hgb 13.5 g/dL (12.0-15.0) 10/10/23 06:22 Hct 41.5 % (37-47) 10/10/23 06:22 Plt Count 273 K/mm3 (150-450) 10/10/23 06:22 CHEMISTRY Potassium 4.0 mmol/L (3.5-5.1) 10/10/23 06:22 Sodium 138 mmol/L (136-145) 10/10/23 06:22 BUN 12 mg/dL (7-18) 10/10/23 06:22 Creatinine 0.79 mg/dL (0.55-1.02) 10/10/23 06:22 Glucose 107 mg/dL (74-106) H 10/10/23 06:22 TSH 3.64 uIU/mL (0.358-3.74) 10/10/23 06:22 COAG Pre-Assessment Diagnosis/Proposed Procedure Planned Operative Procedure(s): COLONOSCOPY-OA Anesthesia History 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 When Was Last Pacemaker Check QUESTION #4 FULL TEXT: You/Your Family Experience fever (hyperthermia) with Anesthesia Last Oral Intake Last Oral intake: Last Oral Intake NPO since 06:00 05/09/24 09:17 Meds taken in AM with sips of water? 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 Female Yes 05/05/24 15:36 HX of Motion Sickness No 05/05/24 15:36 HX of N/V After Surgery No 05/05/24 15:36 Non-Smoker Yes 05/05/24 15:36 Duration of Surgery greater No 05/05/24 15:36 than 60 minutes Number of Risk Factors 2 05/05/24 15:36 PONV Score Moderate Risk 05/05/24 15:36 Height & Weight Height & Weight: Anesthesia: Height & Weight Height 5 ft 5 in 05/09/24 09:17 Weight: 71.4 kg 05/09/24 09:17 Body Mass Index (BMI) 26.2 05/09/24 09:17 Respiratory Assessment Respiratory Assessment - scrap preparation supervisor: Respiratory Tract Infection Hx - scrap preparation supervisor Hx Respiratory Tract Infection No 05/05/24 15:36 STOP Sleep Apnea STOP Sleep Apnea - scrap preparation supervisor: STOP Sleep Apnea - scrap preparation supervisor Hx Hypertension No 05/05/24 15:36 Hx Sleep Apnea No 05/05/24 15:36 CPAP BIPAP Do you snore loudly (louder No 05/05/24 15:36 than talking or can be heard Do you often feel tired/ No 05/05/24 15:36 fatigued/ sleepy during daytime? Has anyone observed you stop No 05/05/24 15:36 breathing during sleep? STOP Results Negative 05/05/24 15:36 QUESTION #5 FULL TEXT : Do you snore loudly (louder than talking or can be heard through closed doors)? 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 Specify any problems Hx of Preganancy in last 3 No 05/05/24 15:36 Months Nurse Filling Out Transfusion VCHRISTIN 05/05/24 15:36 & Questions: Date: 05/05/24 05/05/24 15:36 Time: 15:37 05/05/24 15:36 Patient unable to answer at this time (ie. confused, unrespo /Reproduction History /Reproductive History - scrap preparation supervisor: /Reproductive Hx- scrap preparation supervisor Hx Now No 05/05/24 15:36 Gestational Age (in weeks): EDC: Hx Hx Para Hx Section SAB No 05/05/24 15:36 PFSH Medical History Post-menopausal Injury of head and neck Non-smoker TMJ Home Medications ?Medication ?Instructions ?Recorded ?Last Taken ?Type fluticasone propionate 50 1 spray NASAL DAILY 06/21/20 Unknown History mcg/actuation nasal spray,suspension acetaminophen 500 mg tablet 500 mg PO Q4H PRN PRN Pain Score 06/25/20 Unknown Rx 1-5/10 psyllium husk 3.4 gram/5.4 gram 1 tbsp PO DAILY 11/27/23 Unknown History oral powder (Metamucil) Allergy/AdvReac Type Severity Reaction Status Date / Time cephalexin (From Keflex) Allergy Mild Hives Verified 05/09/24 09:17 sulfamethoxazole (From Allergy Hives Verified 05/09/24 09:17 Bactrim) trimethoprim (From Bactrim) Allergy Hives Verified 05/09/24 09:17 phenobarbital AdvReac Vomiting Verified 05/09/24 09:17 Family History Father Myocardial infarction Mother Hypertension Aunt Colon cancer Surgical History Hx of nasal septoplasty Hx of eye surgery Social History household members: spouse current occupational status: unemployed Smoking Status: Never smoker alcohol intake: never substance use type: does not use caffeine: Yes what type of physical activity do you participate in: none seatbelt use: always do you feel safe at home: Yes additional social history: [employer] Review of Systems (Anesthesia) ROS Narrative System reviewed and no additional complaints, except as documented.
--- NOTE | 2024-05-09 10:04 | HP.PCM_ITS ---
HPI - General HPI Narrative MILO CONSTANTINO, is a 53 F who presents for screening colonoscopy. Patient has never had a colonoscopy in the past. She denies abdominal pain or blood in the stool. She has family history of colon cancer in a maternal aunt [facility] Medical History Post-menopausal Injury of head and neck Non-smoker TMJ Home Medications ?Medication ?Instructions ?Recorded ?Last Taken ?Type fluticasone propionate 50 1 spray NASAL DAILY 06/21/20 Unknown History mcg/actuation nasal spray,suspension acetaminophen 500 mg tablet 500 mg PO Q4H PRN PRN Pain Score 06/25/20 Unknown Rx 1-09/13 psyllium husk 3.4 gram/5.4 gram 1 tbsp PO DAILY 11/27/23 Unknown History oral powder (Metamucil) Allergy/AdvReac Type Severity Reaction Status Date / Time cephalexin (From Keflex) Allergy Mild Hives Verified 05/09/24 09:17 sulfamethoxazole (From Allergy Hives Verified 05/09/24 09:17 Bactrim) trimethoprim (From Bactrim) Allergy Hives Verified 05/09/24 09:17 phenobarbital AdvReac Vomiting Verified 05/09/24 09:17 Family History Father Myocardial infarction Mother Hypertension Aunt Colon cancer Surgical History Hx of nasal septoplasty Hx of eye surgery Social History household members: spouse current occupational status: unemployed Smoking Status: Never smoker alcohol intake: never substance use type: does not use caffeine: Yes what type of physical activity do you participate in: none seatbelt use: always do you feel safe at home: Yes additional social history: [employer] Past Medical/Surgical History Planned Operation Planned Operative Procedure(s): COLONOSCOPY-OA S.O.S: No Previous Hospitalizations/Surgeries HX Hospitalizations: No HX of Surgeries: corrective eye surgery left 1977 Any Problems With Anesthesia: Yes (NAUSEA) You/Your Family Experience Fever (Hyperthermia) With Anes: No Cholinesterase deficiency: No Cardiovascular Hx Chest Pain within Last 2 months: No Hx of Irregular Heartbeat and/or Afib: No Hx Heart Attack: No Hx Congestive Heart Failure: No Hx Rheumatic Fever: No Hx Hypertension: No Hx Internal Defibrillator: No Hx Pacemaker: No Hx Cardiac Catheterization: No Hx Cardiac Surgery/Stents/Etc.: No Hx Stress Test: No Hx Pain in Legs when Walking/Leg Cramps: No Respiratory Chronic Cough: No HX of Shortness of Breath: No Hoarseness: No Hx Chronic Obstructive Pulmonary Disease (COPD): No Hx Asthma: No Hx Emphysema: No Hx Sleep Apnea: No Hx Respiratory Tract Infection/Cold (presently): No Do You Snore Loudly (louder than talking or can be heard): No Do You Often Feel Tired/ Fatigued/ Sleepy Dring Daytime?: No Has Anyone Observed You Stop Breathing During Sleep?: No Result (for STOP score): Negative Hx Smoking: No Smoking Status: Never smoker Gastrointestinal Hx Gastrointestinal Disorders: No Hx Gastrointestinal Bleed: No Hx Ulcer: No Hx Hiatal Hernia: No Difficulty Chewing/Swallowing: No (tmj) Special diet followed at home: No Hx Unplanned Weight Loss of 20#: No HX Unplanned Weight Gain of 20#: No Neurological Hx Seizures: No HX Syncope/Blackout Spells/Unconsciousness: No Hx Transient Ischemic Attacks (TIA): No Hx Multiple Sclerosis: No Hx Parkinson's Disease: No Hx Head/Neck Injury: No Hx Headaches: Yes (sinus hernandes) Hx Back Injury/Pain: No Recent Onset of Speech Difficulty: No Restless Legs: No Does patient have nerve stimulator: No Blood Disorder Hx Leukemia: No Bleeding Tendencies: No Hx Deep Vein Thrombosis: No Hx High Cholesterol: No Blood Transmitted Disease: No Hx Hepatitis: No Hx Cirrhosis: No Hx Anemia: No Hx Blood Disorders: No Reproduction : No Is Patient Lactating: No Hx Hysterectomy: No Hx Tubal Ligation: No Are You Post Menopause: Yes Genitourinary Hx Renal Disease: No Musculoskeletal Hx Arthritis: No Hx Rheumatoid Arthritis: No Hx Gout: No Recent Onset of an Orthopedic Problem: No Endocrine Hx Diabetes: No Thyroid Disease: No Hx Steroid Therapy: No Psycho/Social Hx Substance Use: No Hx Alcohol Use: No Hx Anxiety: Yes (situational) Hx Depression: No Mental Illness: No Hx Dementia: No Miscellaneous Hx Cancer: No Recent Exposure to Contagious Disease: No Hx of C-Diff: No Any Loose Teeth: No (chipped teeth upper) Allergies cephalexin (From Keflex) Allergy (Mild, Verified 05/09/24 09:17) Hives Severe N/V sulfamethoxazole (From Bactrim) Allergy (Verified 05/09/24 09:17) Hives trimethoprim (From Bactrim) Allergy (Verified 05/09/24 09:17) Hives phenobarbital Adverse Reaction (Verified 05/09/24 09:17) Vomiting Discharge Is Pt Admitted From a Custodial, or a Prison: No After D/C, Where Do you Plan to Go: Return Home Vital Signs Vital Signs Vital Signs: 05/09/24 09:17 05/09/24 09:17 05/09/24 09:57 Temperature 98.8 F 98.8 F Temperature Source Temporal Pulse Rate 76 76 Respiratory Rate 16 16 Respiratory Pattern Normal Blood Pressure 130/84 H 130/84 H Blood Pressure Mean 99 Blood Pressure Source Monitor Blood Pressure Position Semi-Fowlers Blood Pressure Location Left Arm Pulse Ox 100 100 Oxygen Delivery Method Room Air Weight Weight: 157 lb 6.561 oz Body Mass Index (BMI) 26.2 Physical Exam Const alert and oriented x3 HEENT normocephalic Eyes PERRL Resp normal respiratory effort and normal air movement Cardio regular rate and regular rhythm GI soft to palpation, non-tender and non-distended Extremity normal to inspection Assessment & Plan Assessment/Plan (1) Encounter for screening for malignant neoplasm of colon: PLAN: I explained endoscopy in detail to the patient. I explained the risks including but not limited to stroke or heart attack with anesthesia, perforation of the GI tract, bleeding, infection. I explained that any of these could necessitate further emergency surgery. The patient understands and all questions were answered sufficiently. The patient wishes to proceed with procedure. Kenneth Tsai MD Pager: [facility] [address] [place] [address], [address] [place] [address] Office: Surgery Risks - Colonoscopy Risks Include but are not Limited To: Risks include but are not limited to: Bleeding, perforation requiring further surgery, inability to complete colonoscopy requiring barium enema.
--- NOTE | 2024-05-09 10:15 | COLBX_PTH ---
PATIENT: MILO CONSTANTINO LOC: EN U#:[id number] AGE/SX: 53/F ROOM: RE05/09/[address]: Dr. Kenneth Tsai MD : 1970 BED: DIS: 05/09/2024 SPEC #: [id number] RECD: 05/09/24 12:45 STATUS: CASSY MCCANN #: [id number] MICHELLE: 05/09/24 10:[address]: Kenneth Tsai DEPT: SURGICAL PATHOLOGY RECD BY: Lisa Ridley ENTERED: 05/09/24 13:04 SP TYPE: COLON BX OTHR DR: Dr. Linda Lazo MD Tissues: Ascending colon Procedures: Surgery Specimen Level IV HEADER OPERATION: Colonoscopy with polypectomy PRE-OP DIAGNOSIS: Encounter for screening for malignant neoplasm of colon TISSUE SUBMITTED: Ascending colon polyp MICROSCOPIC DIAGNOSIS Ascending colon polyp, polypectomy: Tubular adenoma. Fragments of fecal material. SJ.mr 05/12/2024 MICROSCOPIC DESCRIPTION Slides are reviewed. GROSS DESCRIPTION Received in fixative is one container labeled with the patient's name and designated Ascending colon polyp. The specimen consists of one irregular fragment of light mahoney soft tissue that measures 0.4 x 0.3 x 0.2 cm. Also present in the container are multiple fragments of mahoney soft tissue mixed with fecal material measuring in aggregate 0.5 x 0.1 x 0.1cm. The specimen is totally submitted in one cassette. 05/09/2024 TC:1 CPT:05147
--- NOTE | 2024-05-09 10:36 | OP.COLON_ITS ---
Patient Name: Susana Cowart Procedure Date: 05/09/2024 10:08 AM Date of : 1970 Age: 53 Procedure: Colonoscopy Indications: Screening for colorectal malignant neoplasm Providers: Kenneth Tsai MD Referring MD: Linda Lazo Medicines: Propofol per Anesthesia Patient Profile: Last Colonoscopy: none. The patient's first colonoscopy is today. Complications: No immediate complications. Estimated blood loss: Minimal. Procedure: Pre-Anesthesia Assessment: - Prior to the procedure, a History and Physical was performed, and patient medications and allergies were reviewed. The patient's tolerance of previous anesthesia was also reviewed. The risks and benefits of the procedure and the sedation options and risks were discussed with the patient. All questions were answered, and informed consent was obtained. Prior Anticoagulants: The patient has taken no anticoagulant or antiplatelet agents. After reviewing the risks and benefits, the patient was deemed in satisfactory condition to undergo the procedure. After I obtained informed consent, the scope was passed under direct vision. Throughout the procedure, the patient's blood pressure, pulse, and oxygen saturations were monitored continuously. The pediatric colonoscope was introduced through the anus and advanced to the cecum, identified by appendiceal orifice and ileocecal valve. The colonoscopy was performed without difficulty. The patient tolerated the procedure well. The quality of the bowel preparation was good. The ileocecal valve, appendiceal orifice, and rectum were photographed. Scope In: 10:17:12 AM Scope Withdrawal Time 0 hours 3 minutes 6 seconds Scope Out: 10:33:43 AM Total Procedure Duration Time 0 hours 16 minutes 31 seconds Findings: The entire examined colon appeared normal on direct and retroflexion views. A polyp was found in the ascending colon. The polyp was semi-pedunculated. The polyp was removed with a hot snare. Resection and retrieval were complete. Impression: - The entire examined colon is normal on direct and retroflexion views. - One polyp in the ascending colon, removed with a hot snare. Resected and retrieved. Recommendation: - Discharge patient to home. - Resume previous diet. - Continue present medications. - Repeat colonoscopy in 5 years for surveillance. - Await pathology results. Procedure Code(s): --- Professional --- 69082, Colonoscopy, flexible; with removal of tumor(s), polyp(s), or other lesion(s) by snare technique Diagnosis Code(s): --- Professional --- Z12.11, Encounter for screening for malignant neoplasm of colon D12.2, Benign neoplasm of ascending colon CPT copyright 2021 [employer] [place] [employer]. All rights reserved. The codes documented in this report are preliminary and upon solderer electronic review may be revised to meet current compliance requirements. Kenneth Tsai MD 05/09/2024 10:36:00 AM This report has been signed electronically. Number of Addenda: 0 Note Initiated On: 05/09/2024 10:08 AM
--- NOTE | 2024-05-09 10:36 | OP.CCLET_ITS ---
05/09/2024 Linda Lazo [place] [id number] [address] Re : Colonoscopy procedure for Susana Cowart Dear Dr. Lazo This procedure was performed on Thursday, May 09, 2024. My impressions and recommendations are as follows: Impressions : - The entire examined colon is normal on direct and retroflexion views. - One polyp in the ascending colon, removed with a hot snare. Resected and retrieved. Recommendations : - Discharge patient to home. - Resume previous diet. - Continue present medications. - Repeat colonoscopy in 5 years for surveillance. - Await pathology results. My findings are described in the full procedure note, which is enclosed. If I can be of further assistance, please feel free to contact me at Doctor phone number(s): , Work: . Sincerely, Kenneth Tsai MD 05/09/2024 10:36:00 AM This report has been signed electronically.
--- NOTE | 2024-05-09 10:44 | PCM.POST.ANE ---
Anesthesia: Postop Eval I Current Vital Signs Temperature: 97 F Pulse Rate: 87 Blood Pressure: 92/71 Respiratory Rate: 16 Pulse Ox: 97 Oxygen Delivery Method: Room Air Assessment Airway patent: Yes Spontaneous unlabored respirations: Yes Mental status: Awake and Calm nausea: No Vomiting: No Anesthesia Complication: No Fluid Hydration Crystalloid volume administer (ml): 50 Total IV fluid infused: 50 Progress Note Anesthesia document: Postop Eval 1 completed: Yes
== END 2024-05-09 11:38 | disposition home or self-care (01) ==
LOC: EN 08:59 → AC 09:00
PROVIDERS: PCP Family Medicine; Referring Provider Family Medicine; Visit Provider Surgery
PROC: 0DJD8ZZ Inspection of Lower Intestinal Tract, Via Natural or Artificial Opening Endoscopic (ICD-10-PCS; CPT 45378; principal; 2024-05-09 10:10)
DX: Z12.11 Encounter for screening for malignant neoplasm of colon (principal); D12.2 Benign neoplasm of ascending colon
CPT/HCPCS: 45385; 88305; A4216; J2405

== ENCOUNTER → 2024-06-02 | Outpatient (CLI) | payer OTHER, SELFPAY ==
--- NOTE | 2024-06-02 10:37 | BI_ITS ---
MAMMOGRAPHY - BILATERAL SCREENING REASON FOR EXAM: Female, 53 years old. Routine annual screening examination. PERTINENT HISTORY: Grandmother with breast cancer. TECHNIQUE: Digital bilateral breast janny (3D mammographic acquisition) in the CC and MLO projections. 2-D mediolateral oblique (MLO) and craniocaudad (CC) views of both breasts were obtained. CAD: Full Field Digital Mammography with Computer Added Detection was performed. COMPARISON: Comparison is made with prior study dated February 15, 2023 and January 17, 2022. FINDINGS: Breast Composition: The breasts are heterogeneously dense, which may obscure small masses. There are no dominant masses or suspicious calcifications. No other significant abnormalities are identified. There has been no significant change since the prior study. BI/SCRN MAMM (CAD)W/JANNY BILAT IMPRESSION: Stable bilateral screening mammogram. Yearly follow-up mammogram recommended. (A) ASSESSMENT CATEGORY: BIRADS Category 1: Negative. A letter regarding these results will be sent to the patient by the facility within 30 days. Approximately 10% of breast cancers are not detected by mammography. A normal mammogram should not delay biopsy of a clinically suspicious abnormality. [id number] Electronically Signed: Gilberto Prasad MD at 11:10 EST ,
== END | disposition home or self-care (01) ==
LOC: OPBI 10:36
PROVIDERS: PCP Family Medicine; Referring Provider Obstetrics & Gynecology Gynecology; Visit Provider Obstetrics & Gynecology Gynecology
DX: Z12.31 Encounter for screening mammogram for malignant neoplasm of breast (principal); Z80.3 Family history of malignant neoplasm of breast
CPT/HCPCS: 77063; 77067